=== PATIENT | male | born 1975 | race Caucasian/White ===

== ENCOUNTER 2018-09-06 11:29 | Emergency (ER) | payer SELFPAY ==
--- NOTE | 2018-09-06 11:42 | EDPHY ---
H & P Stated Complaint: R lower back spasms x 2 days--no trauma-"alot of heavy manual labor" Time Seen by Provider: 09/06/18 11:41 - Medical/Surgical History Hx Asthma: No Hx Chronic Respiratory Disease: No Hx Diabetes: No Hx Cardiac Disease: No Hx Renal Disease: No Hx Cirrhosis: No Hx Alcoholism: No Hx HIV/AIDS: No Hx Splenectomy or Spleen Trauma: No Other PMH: asthma - Social History Smoking Status: Current every day smoker Constitutional: Initial Vital Signs Temperature (C) 36.5 C 09/06/18 11:33 Heart Rate 88 09/06/18 11:33 Respiratory Rate 20 09/06/18 11:33 Blood Pressure 107/89 H 09/06/18 11:33 O2 Sat (%) 94 09/06/18 11:33 O2 Delivery Mode Room Air Allergies/Adverse Reactions: No Known Allergies Allergy (Unverified 09/06/18 11:33) Home Medications: Medication Instructions Recorded Albuterol 09/06/18 HYDROcodone/APAP [[place] 1 - 2 each PO Q4-6PRN PRN #20 tab 09/06/18 10325] methylPREDNISolone [Medrol Dose 1 each PO AD #1 ea 09/06/18 Alex] Medical Decision Making - Diagnostics Imaging: Discussed imaging studies w/ call center rn Radiologist, I viewed and interpreted images myself ED Course/Re-evaluation: CHIEF COMPLAINT: Right lower back pain HISTORY OF PRESENT ILLNESS: The patient is a 43 y/o male with a history of asthma complaining of right lower pack pain, onset 2 days ago. 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 Since the "pop", he has had right lower back pain that radiates down his right leg to the knee. Standing is the most comfortable for him and moving around provides a "minor release of pain". No fever, headaches, chest pain, shortness of breath, abdominal pain, urinary or bowel complaints, numbness. REVIEW OF SYSTEMS: A comprehensive 10 system review of systems is otherwise negative aside from elements mentioned in the history of present illness and medical decision making. PHYSICAL EXAM: HR, BP, O2 Sat, RR. Temp noted General Appearance: Alert, well hydrated, appropriate, and non-toxic appearing. Head: Atraumatic without scalp tenderness or obvious injury Eyes: Pupils equal, round, reactive to light and accommodation, EOMI, no trauma , no injection. Ears: Clear bilaterally, no perforation, normal landmarks Nose: Atraumatic, no rhinorrhea, clear. Throat: There is no erythema or exudates, no lesions, normal tonsils, mucus membranes moist. Neck: Supple, 2+ carotid upstroke, nontender, no lymphadenopathy. Respiratory: No retractions, no distress, no wheezes, and no accessory muscle use. Lungs are clear to auscultation bilaterally. Cardiovascular: Regular rate and rhythm, no murmurs, rubs, or gallops. Bilateral carotid, radial, dorsalis pedis, and posterior tibial pulses intact. Good capillary refill all extremities. Gastrointestinal: Abdomen is soft, nontender, non-distended, no masses, no rebound, no guarding, no peritoneal signs. Musculoskeletal: Normal active ROM of all extremities, atraumatic. Neurological: Alert, appropriate, and interactive. Right quadriceps motor deficit. The patient has normal DTRs and non-focal cranial nerves, sensory, and cerebellar exam. Skin: No rashes, good turgor, no nodules on palpation. Past medical history: Asthma Past surgical history: Denies Family history: Denies Social history: Works in construction, lives in [place], smoker DIAGNOSTICS/PROCEDURES/CRITICAL CARE TIME: Study: MRI of the: spine Indication: Neurologic Results: MRI scan of the lumbar was obtained. The results of the study are diffuse degenerative changes with numerous disc bulges. Most significant disc bulging is at L3 4 an L4-5.. The study was read by the radiologist, Dr. Maulik Kessler. I viewed the images myself on the PACS system. DIFFERENTIAL DIAGNOSIS: The differential diagnosis for the patient's back pain included but was not limited to musculoskeletal pain, epidural abscess, herniated disk, spinal fracture, and intra-abdominal causes including urinary system. MEDICAL DECISION MAKING: The patient is a 43 y/o male with a history of asthma complaining of right lower pack pain radiating down his right leg, onset 2 days ago after lifting a heavy object at work. On exam he has right quadriceps motor deficit. Lumbar MRI ordered; 2 tab PO Percocet and 60mg PO Prednisone administered. 1319: I reviewed patient's lumbar MRI which reveals an L3-4 disk bulge; radiologist reading still pending. Reassessed patient and discussed imaging findings. I have advised him to follow up with a neurosurgeon in the next week. I have also prescribed him [place] and a Medrol dose pack for his symptoms. Return precautions provided; patient is comfortable with this plan. - Data Points Medications Given: Discontinued Medications Oxycodone/Acetaminophen (Percocet 5/325) 2 tab PO EDNOW ONE Stop: 09/06/18 11:48 Last Admin: 09/06/18 11:54 Dose: 2 tab Prednisone (Prednisone) 60 mg PO EDNOW ONE Stop: 09/06/18 11:48 Last Admin: 09/06/18 11:54 Dose: 60 mg Departure - Departure Disposition: Home, Routine, Self-Care Clinical Impression: Lumbar disc herniation with radiculopathy Condition: Good Instructions: Lumbar Disc Herniation (ED) Additional Instructions: 1. Followup with a email production specialist within one week. 2. Return to the emergency department for severe pain, fever, numbness, difficulty walking, change in location or nature of pain or other concerns. 3. Take [place] and the Medrol-dose alex as prescribed. 4. Try using a heating pad. Referrals: Anselmo Candelaria MD [Medical Doctor] - As per Instructions Prescriptions: HYDROcodone/APAP 10/325 [[place] 10/325] 1 - 2 each PO Q4-6PRN PRN #20 tab PRN Reason: Pain, Moderate methylPREDNISolone [Medrol Dose Alex] 1 each PO AD #1 ea Report Scribed for: Hardy Tellez Report Scribed by: Noelle Coon Date of Report: 09/06/18 Time of Report: 11:42
[2018-09-06] MEDS ORDERED: predniSONE 20 MG TAB PO ONE (11:47)
[2018-09-06] MEDS ORDERED: OXYCODONE/APAP 5/325 TAB PO ONE (11:47)
[2018-09-06 14:57] VITALS: BP 140/88
== END 2018-09-06 14:53 | disposition home or self-care (01) ==
DX: M51.16 Intervertebral disc disorders with radiculopathy, lumbar region (principal); J45.909 Unspecified asthma, uncomplicated; F17.200 Nicotine dependence, unspecified, uncomplicated; X50.0XXA Overexertion from strenuous movement or load, initial encounter; Y99.9 Unspecified external cause status
CPT/HCPCS: J7512